=== PATIENT | male | born 1945 | race Caucasian/White ===

== ENCOUNTER 2017-12-03 18:57 | Emergency (ER) | payer MEDICARE ==
--- NOTE | 2017-12-03 19:06 | EDM.PDOC ---
ED HPI GENERAL MEDICAL PROBLEM - General Chief Complaint: Respiratory Problem Stated Complaint: DIFFICULTY BREATHING Time Seen by Provider: 12/03/17 19:01 Source of Information: Reports: Patient, Family History Limitations: Reports: No Limitations - History of Present Illness INITIAL COMMENTS - FREE TEXT/NARRATIVE: Patient began to have difficulty breathing while eating rice and roast beef @45 min ago. He is expectorating foamy liquid. Denies N/V. Has h/o similar issues in the past which usually resolves with back blows. No h/o chronic lung disease or heart failure. Onset: Sudden Onset Date: 12/03/17 Onset Time: 18:15 Severity: Moderate Associated Symptoms: Reports: Shortness of Breath - Related Data Allergies Allergy/AdvReac Type Severity Reaction Status Date / Time No Known Allergies Allergy Verified 12/03/17 19:14 Home Meds: Home Meds Diclofenac Sodium [Voltaren-XR] 100 mg PO DAILY PRN 11/23/12 [History] Potassium Chloride [Klor-Con M20] 20 meq PO DAILY 11/23/12 [History] Tamsulosin HCl [Flomax] 0.4 mg PO BEDTIME 11/23/12 [History] Carbidopa/Levodopa [Sinemet 25-100 mg] 1 tab PO TID 04/25/14 [History] Divalproex Sodium [Depakote ER] 500 mg PO BID 04/25/14 [History] Vitamin B Complex [B Complex] 1 each PO BID 04/25/14 [History] Past Medical History Cardiovascular History: Reports: Hypertension. Denies: CAD, Heart Failure Respiratory History: Reports: None Neurological History: Reports: Parkinson's Social & Family History - Tobacco Use Smoking Status *Q: Never Smoker - Alcohol Use Alcohol Use History: No ED ROS GENERAL - Review of Systems Review Of Systems: See Below Constitutional: Reports: No Symptoms HEENT: Reports: No Symptoms Respiratory: Reports: Shortness of Breath, Cough Cardiovascular: Reports: No Symptoms Endocrine: Reports: No Symptoms GI/Abdominal: Reports: No Symptoms : Reports: No Symptoms Musculoskeletal: Reports: No Symptoms Skin: Reports: No Symptoms Neurological: Reports: No Symptoms Psychiatric: Reports: No Symptoms Hematologic/Lymphatic: Reports: No Symptoms Immunologic: Reports: No Symptoms ED EXAM, GENERAL - Physical Exam Exam: See Below Exam Limited By: No Limitations General Appearance: Alert, WD/WN, No Apparent Distress Ears: Normal External Exam Nose: Normal Inspection Throat/Mouth: Normal Oropharynx Head: Atraumatic, Normocephalic Neck: Full Range of Motion Respiratory/Chest: Respiratory Distress, Rhonchi (diffuse) Cardiovascular: Regular Rate, Rhythm, No Murmur GI/Abdominal: Soft, Non-Tender, No Distention Extremities: Normal Range of Motion Neurological: Alert, No Motor/Sensory Deficits Psychiatric: Normal Affect, Normal Mood Skin Exam: Warm, Dry, Intact EKG INTERPRETATION EKG Date: 12/03/17 Time: 19:45 Rhythm: NSR Rate (Beats/Min): 83 [place]: Normal P-Wave: Present QRS: Normal ST-T: Other (minimal, anterior leads) QT: Normal Comparison: No Change (08/07/13) Course - Vital Signs Last Recorded V/S: Last Vital Signs Temp 36.4 C 12/03/17 18:57 Pulse 85 12/03/17 18:57 Resp 28 H 12/03/17 18:57 BP 191/93 H 12/03/17 18:57 Pulse Ox 100 12/03/17 18:57 - Orders/Labs/Meds Orders: Active Orders 24 hr Category Date Time Status EKG Documentation Completion [RC] ASDIRECTED Care 12/03/17 19:07 Active RT Aerosol Therapy [RC] ASDIRECTED Care 12/03/17 19:59 Active Chest wo Cont [CT] Stat Exams 12/03/17 18:59 Taken Piperacillin/Tazobactam [Zosyn] 3.375 gm Med 12/03/17 20:02 Active Sodium Chloride 0.9% [Normal Saline] 50 ml IV ONETIME EKG 12 Lead [EK] Routine Ther 12/03/17 19:07 Ordered Medication Orders Piperacillin Sod/Tazobactam (Sod 3.375 gm/ Sodium Chloride) 50 mls @ 100 mls/ hr IV ONETIME ONE Stop: 12/03/17 20:31 Last Admin: 12/03/17 20:09 Dose: 100 mls/hr Labs: Laboratory Tests 12/03/17 12/03/17 12/03/17 Range/Units 19:15 19:15 19:15 WBC 9.8 (4.5-12.0) X10-3/uL RBC 4.61 (4.30-5.75) x10(6)uL Hgb 14.2 (11.5-15.5) g/dL Hct 42.3 (30.0-51.3) % MCV 91.6 (80-96) fL MCH 30.9 (27.7-33.6) pg MCHC 33.7 (32.2-35.4) g/dL RDW 12.6 (11.5-15.5) % Plt Count 208 (125-369) X10(3)uL MPV 9.8 (7.4-10.4) fL Neut % (Auto) 74.9 (46-82) % Lymph % (Auto) 15.7 (13-37) % Esmeralda % (Auto) 5.8 (4-12) % Eos % (Auto) 2 (1.0-5.0) % Baso % (Auto) 2 (0-2) % Neut # (Auto) 7.3 (1.6-8.3) # Lymph # (Auto) 1.5 (0.6-5.0) # Esmeralda # (Auto) 0.6 (0.0-1.3) # Eos # (Auto) 0.2 (0.0-0.8) # Baso # (Auto) 0.2 (0.0-0.2) # PT (8.7-11.1) INR (0.89-1.13) Sodium 144 (135-145) mmol/L Potassium 3.5 (3.5-5.3) mmol/L Chloride 104 (100-110) mmol/L Carbon Dioxide 30 (21-32) mmol/L BUN 17 (7-18) mg/dL Creatinine 0.9 (0.70-1.30) mg/dL Est Cr Clr Drug Dosing TNP Estimated GFR (MDRD) > 60 (>60) BUN/Creatinine Ratio 18.9 (9-20) Glucose 124 H (80-116) mg/dL Calcium 8.9 (8.6-10.2) mg/dL Total Bilirubin 0.6 (0.1-1.3) mg/dL AST 18 (5-25) IU/L ALT 18 (12-36) U/L Alkaline Phosphatase 58 (56-112) IU/L Troponin I < 0.017 L (<0.017-0.056) ng/mL Total Protein 7.9 (6.0-8.0) g/dL Albumin 3.5 (3.2-4.6) g/dL Globulin 4.4 g/dL Albumin/Globulin Ratio 0.8 12/03/17 Range/Units 19:50 WBC (4.5-12.0) X10-3/uL RBC (4.30-5.75) x10(6)uL Hgb (11.5-15.5) g/dL Hct (30.0-51.3) % MCV (80-96) fL MCH (27.7-33.6) pg MCHC (32.2-35.4) g/dL RDW (11.5-15.5) % Plt Count (125-369) X10(3)uL MPV (7.4-10.4) fL Neut % (Auto) (46-82) % Lymph % (Auto) (13-37) % Esmeralda % (Auto) (4-12) % Eos % (Auto) (1.0-5.0) % Baso % (Auto) (0-2) % Neut # (Auto) (1.6-8.3) # Lymph # (Auto) (0.6-5.0) # Esmeralda # (Auto) (0.0-1.3) # Eos # (Auto) (0.0-0.8) # Baso # (Auto) (0.0-0.2) # PT 9.5 (8.7-11.1) INR 0.98 (0.89-1.13) Sodium (135-145) mmol/L Potassium (3.5-5.3) mmol/L Chloride (100-110) mmol/L Carbon Dioxide (21-32) mmol/L BUN (7-18) mg/dL Creatinine (0.70-1.30) mg/dL Est Cr Clr Drug Dosing Estimated GFR (MDRD) (>60) BUN/Creatinine Ratio (9-20) Glucose (80-116) mg/dL Calcium (8.6-10.2) mg/dL Total Bilirubin (0.1-1.3) mg/dL AST (5-25) IU/L ALT (12-36) U/L Alkaline Phosphatase (56-112) IU/L Troponin I (<0.017-0.056) ng/mL Total Protein (6.0-8.0) g/dL Albumin (3.2-4.6) g/dL Globulin g/dL Albumin/Globulin Ratio Meds: Medications Generic Name Dose Route Start Last Admin Trade Name Freq PRN Reason Stop Dose Admin Piperacillin Sod/Tazobactam 50 mls @ 100 mls/hr 12/03/17 20:02 12/03/17 20:09 Sod 3.375 gm/ Sodium Chloride IV 12/03/17 20:31 100 mls/hr ONETIME ONE Administration Discontinued Medications Generic Name Dose Route Start Last Admin Trade Name Freq PRN Reason Stop Dose Admin Albuterol 2.5 mg 12/03/17 19:59 12/03/17 20:03 Proventil Neb Soln NEB 12/03/17 20:00 2.5 mg ONETIME ONE Administration - Radiology Interpretation Free Text/Narrative:: CT Chest w/o contrast: Areas of bilateral patchy ground-glass infiltrate. Peribronchial thickening within the lower lobes with partial bronchial opacification which is likely inflammatory. - Re-Assessments/Exams Free Text/Narrative Re-Assessment/Exam: 12/03/17 20:00 Dyspnea improved after suctioning, however patient still complains of shortness of breath. Sa02 99% RA. Rhonchi now localized to right lower lung field. 12/03/17 20:29 Dr. Acevedo accepts the patient for transfer to [facility]. Departure - Departure Time of Disposition: 20:28 Disposition: DC/Tfer to Acute Hospital 02 Condition: Fair Clinical Impression: Foreign body aspiration Qualifiers: Encounter type: initial encounter Qualified Code(s): T17.900A - Unspecified foreign body in respiratory tract, part unspecified causing asphyxiation, initial encounter Aspiration pneumonia Qualifiers: Aspiration pneumonia type: unspecified Laterality: unspecified laterality Lung location: unspecified part of lung Qualified Code(s): J69.0 - Pneumonitis due to inhalation of food and vomit - Discharge Information *PRESCRIPTION DRUG MONITORING PROGRAM REVIEWED*: No *COPY OF PRESCRIPTION DRUG MONITORING REPORT IN PATIENT JACKIE: Not Applicable Referrals: PCP,Unknown [Primary Care Provider] - Forms: ED Department Discharge - My Orders Last 24 Hours: My Active Orders 12/03/17 18:59 Chest wo Cont [CT] Stat 09/23/18 19:07 EKG Documentation Completion [RC] ASDIRECTED EKG 12 Lead [EK] Routine 12/03/17 19:59 RT Aerosol Therapy [RC] ASDIRECTED 12/03/17 20:02 Piperacillin/Tazobactam [Zosyn] 3.375 gm Sodium Chloride 0.9% [Normal Saline] 50 ml IV ONETIME - Assessment/Plan Last 24 Hours: My Active Orders 12/03/17 18:59 Chest wo Cont [CT] Stat 12/03/17 19:07 EKG Documentation Completion [RC] ASDIRECTED EKG 12 Lead [EK] Routine 12/03/17 19:59 RT Aerosol Therapy [RC] ASDIRECTED 12/03/17 20:02 Piperacillin/Tazobactam [Zosyn] 3.375 gm Sodium Chloride 0.9% [Normal Saline] 50 ml IV ONETIME
[2017-12-03] MEDS ORDERED: Albuterol 0.083% 2.5 MG/3 ML Neb Soln NEB ONE (19:59)
[2017-12-03] MEDS ORDERED: Piperacillin/Tazobactam 3.375 GM in Sodium Chloride 0.9% 50 ML IV ONE (20:02)
[2017-12-03 23:41] VITALS: BP 132/63
== END 2017-12-03 21:02 ==
LOC: FB.ED 18:57
DX: J69.0 Pneumonitis due to inhalation of food and vomit (principal); T17.920A Food in respiratory tract, part unspecified causing asphyxiation, initial encounter; I10 Essential (primary) hypertension
CPT/HCPCS: 36415; 71250; 80053; 84484; 85025; 85610; 93005; 93010; 94640; 96365; 99285; J2543; J7050

== ENCOUNTER 2019-02-10 15:40 | Emergency (ER) | payer MEDICARE ==
--- NOTE | 2019-02-10 16:27 | EDM.PDOC ---
ED HPI GENERAL MEDICAL PROBLEM - General Stated Complaint: CPR Time Seen by Provider: 02/10/19 15:41 Source of Information: Reports: EMS - History of Present Illness INITIAL COMMENTS - FREE TEXT/NARRATIVE: c/o cardiac arrest pt comes to ED in full arrest after being down for 60 minutes pt was alert and talking earlier in the day, had eaten a short time before went down in his bedroom, unwitnessed, had been seen 10-20 minutes prior to being found down 1st responders on scene prior to EMS pt given epi x 10, defib x 6, amiodarone x 2 (300 mg and 150 mg) he had a Eddie airway and a L pretib IO, he had been given 1 liter of NS via IO initial rhythm asystole, strip showed flat line with rare QRS several strips after epi of wide complex rhythm without a pulse dx as PEA by EMS defib given for fine VF, those strips not immediately available for review no pulse at any time except with Mc on arrival at ED he was pulseless (carotid, femoral) when Mc stopped, was warm except for slightly cool extremities pupils were fixed and dilated on arrival at ED additional efforts not continued in ED son Robby De Dios, [phone], was called shortly after pt pronounced , Robby said that he would be at the ED in 30 minutes EHR indicates dx of PD and dementia and HTN last labs one yr ago were unremarkable ED ROS GENERAL - Review of Systems Review Of Systems: Unable To Obtain Reason Not Obtained: DOA ED EXAM, GENERAL - Physical Exam Exam: See Below General Appearance: Other (pulseless, no ecchymosis, no visible external imaging , bag ventilation without difficulty, good chest rise with ventilation, no pulse ) Nose: Normal Inspection Throat/Mouth: Normal Inspection Head: Atraumatic, Normocephalic Neck: Normal Inspection GI/Abdominal: No Distention Back Exam: Normal Inspection Extremities: Normal Inspection, No Pedal Edema Skin Exam: Warm, Dry Lymphatic: No Adenopathy Course - Re-Assessments/Exams Free Text/Narrative Re-Assessment/Exam: 02/10/19 18:37 son Robby came to ED with his and his son, there was one other son who is , Robby's mother is (from CV causes), pt was remarried and then and his 2nd is , his sister has as well (from CV causes) pt OD on his 's pills at age 56 and Robby reports that he had "brain damage " and has had memory problems every since Robby himself has PD pt has been taking his pills, has had inc'd walking problems, Robby has had to carry him at times in the past few days did eat today, no pain complaint Robby did not hear his father fall, found him in the far side of the bedroom cause of is cardiac arrest, most likely from an [place] no prior hx or sig risk for pul event (e.g. PE) altho he had weakness (and had swallowing difficulties requiring son to feed him at times and a hx of aspiration pneumonia one yr ago), there is no direct evidence of active infection son declined organ donation son and his and son spent 45 minutes at bedside he smoked a pipe occasionally until age 28, never cigs he was a printer by trade Departure - Departure Time of Disposition: 17:42 Disposition: 20 Preliminary Cause of *Q: Cardiac Arrest Clinical Impression: Cardiac arrest, Sudden - Discharge Information *PRESCRIPTION DRUG MONITORING PROGRAM REVIEWED*: Not Applicable *COPY OF PRESCRIPTION DRUG MONITORING REPORT IN PATIENT JACKIE: Not Applicable Referrals: PCP,None [Ordering Only Provider] -
== END 2019-02-10 15:42 | disposition expired ==
LOC: FB.ED 15:40 → MERGE 15:40 → FB.ED 15:41
DX: I46.9 Cardiac arrest, cause unspecified (principal)
CPT/HCPCS: 99283